=== PATIENT | female | born 1955 | race Caucasian/White ===

== ENCOUNTER 2022-02-13 14:52 | Emergency (ER) | payer OTHER ==
[~2022-02-13] VITALS: Ht 172.7 cm; Wt 89.8 kg
--- NOTE | 2022-02-13 15:15 | NUR ---
BY ADRIAN RECIEVED PT 66 YRS FEMALE CAME BY ADRIAN C/O TRIP AND FALL DOWN TODY RT ANKLE SWALEN AND DIFORMITY EXAMINE BY PT RECIVED FENTANIL 100MCG IV PIRED TO [facility]
--- NOTE | 2022-02-13 15:35 | NUR ---
X RAY ON RT SHANELL AND RT GERARD AT BED SIDE
--- NOTE | 2022-02-13 15:50 | NUR ---
CONSENTSIGN BY PT FULLY UNDERSTOOD FOR CLOSE REDUCTION OF RT ANKLE FRACTURE UNDER MODERTE SEDATION
[2022-02-13] MEDS ORDERED: PROPOFOL 20 ML IV ONE (16:08)
--- NOTE | 2022-02-13 16:18 | NUR ---
RT AT BED SIDE AND TATED RN AND ED TACH FOR MODRET SEDATION
[2022-02-13] MEDS ORDERED: PROPOFOL 200 MG/20 ML VIAL IV ONE (16:30)
--- NOTE | 2022-02-13 16:35 | NUR ---
RT ANKLE WITH SPLEANT X RAY DONE AFTER PORCEDURE
--- NOTE | 2022-02-13 16:40 | NUR ---
PT WIGLING HER TOE WITH NO DIFECULTY PT FULLY AWAKE AND ALERT RESPIRATION SPONT AND EASY
[2022-02-13] MEDS ORDERED: HYDROMORPHONE 1 MG/1 ML DISP.SYRIN IV ONE (17:00)
[2022-02-13] MEDS ORDERED: ONDANSETRON HCL/PF - ER 4 MG/2 ML VIAL IV ONE (17:00)
--- NOTE | 2022-02-13 17:20 | NUR ---
VS STABLE C/O PAIN ON RT ANKLE 03/31 DILAUDID 0.5MG AND ZOFRAN 4MG IVP GIVEN
[2022-02-13] MEDS ORDERED: HYDROMORPHONE 1 MG/1 ML DISP.SYRIN ONE (17:30)
[2022-02-13] MEDS ORDERED: ONDANSETRON HCL/PF 4 MG/2 ML VIAL ONE (17:30)
[2022-02-13] MEDS ORDERED: HYDR-3972 PO ×2 (17:44→18:14)
--- NOTE | 2022-02-13 17:45 | NUR ---
PAIN REDUCED 1-2/10
--- NOTE | 2022-02-13 18:10 | NUR ---
D/C INSTRACTION GIVEN TO PT FULLY AND VERBLIZED UNDERSTOOD D/C HOME VIA WC SKIN WARM AND DRY ON RT ANLE CPRELE REFILD WIGLING HERE TOES
[2022-02-13 19:07] VITALS: BP 130/100
== END 2022-02-13 19:22 | disposition home or self-care (01) ==
LOC: ER 15:04
DX: S92.131A Displaced fracture of posterior process of right talus, initial encounter for closed fracture (principal); S82.832A Other fracture of upper and lower end of left fibula, initial encounter for closed fracture; S49.91XA Unspecified injury of right shoulder and upper arm, initial encounter; W01.0XXA Fall on same level from slipping, tripping and stumbling without subsequent striking against object, initial encounter; Y93.89 Activity, other specified; Y92.89 Other specified places as the place of occurrence of the external cause; Y99.8 Other external cause status
CPT/HCPCS: 27788; 73030; 73590; 73600; 73610; 96374; 96375; 99152; 99285; J1170; J2405; J2704; J7040; G0500